=== PATIENT | female | born 1975 | race Caucasian/White ===

== ENCOUNTER → 2017-09-22 | Outpatient (CLI) | payer BC | END | disposition home or self-care (01) | LOC: LAB.O 08:25 | PROVIDERS: ATTEND General Practice | DX: I10 Essential (primary) hypertension (principal) ==

== ENCOUNTER → 2017-09-30 | Outpatient (CLI) | payer BC ==
--- NOTE | 2017-10-04 10:43 | MAM ---
EXAM DESCRIPTION: 3D Screening BILATERAL : Digital Mammography. CLINICAL HISTORY: 41 years Female SCREENING . No complaints. Remote family history of breast cancer. Postmenopausal. No HRT. Bilateral breast augmentation. COMPARISON: Baseline study at this facility.. No prior reports available. TECHNIQUE: Bilateral CC and MLO projection full-field images, with Marsha Implant Displacement 3-D tomosynthesis digital mammographic technique. Also bilateral synthesized CC/ MLO full-field images. Also with Marsha Implant Displacement, CAD not utilized. Bilateral 2-D digital full-field images, MLO and CC projections, non-displaced, with CAD. FINDINGS: The breast parenchymal density pattern is: Heterogeneously dense breast tissue, which may obscure small masses. No skin thickening or nipple retraction small region of focal asymmetry lateral to the right nipple (1000 clock position) best seen on the implant displacement views. Bilateral axillary lymph nodes. Bilateral subglandular saline implants. Capsules appear intact where seen. No focal, stellate mass or density, focal asymmetry , and no suspicious microcalcifications left breast. IMPRESSION: BI-RADS CATEGORY: 0 - INCOMPLETE- Need additional imaging evaluation. FOLLOW-UP: Recall for additional imaging: Bilateral 3-D tomosynthesis full field LM images. Targeted right breast ultrasound of the region of interest.. Written communication concerning the IMPRESSION and Follow-up, will be mailed to the patient and referring health care provider. Electronically signed by: Trung Denton MD 10/04/2017 10:42 AM CDT
== END ==
LOC: MAMMO 15:00
PROVIDERS: ATTEND General Practice
DX: Z12.31 Encounter for screening mammogram for malignant neoplasm of breast (principal)

== ENCOUNTER → 2017-10-20 | Outpatient (CLI) | payer BC ==
--- NOTE | 2017-10-21 14:22 | US ---
EXAM DESCRIPTION: Breast,Bilateral: Ultrasound CLINICAL HISTORY: 41 yearsFemaleABN MAMMO. Focal asymmetry in the retroareolar breasts. Patient has bilateral saline breast implants. COMPARISON: Digital diagnostic 3-D tomosynthesis with Marsha views and bilateral 2-D mammography on this visit. Bilateral 3-D tomosynthesis screening on 09/30/2017. TECHNIQUE: Transcutaneous scanning of the bilateral retroareolar breast utilizing two-dimensional and Doppler modes. Scanning performed by the cordwood cutter and Dr. Denton. FINDINGS: Scanning of the bilateral breasts in the upper outer quadrant abutting the nipples. Predominantly fibroglandular tissues with minimal fat. No distinct mass or cyst. No large calcifications or parenchymal edema. No overlying skin abnormalities. Normal Doppler vascularity. IMPRESSION: 1. Bi-Rads Category 2: Benign. 2. Please refer to Bilateral 3-D tomosynthesis and 2-D digital mammography and report on this visit. The FINDINGS and the FOLLOW-UP plan were reviewed in person with the patient after the examination. Written communication explaining the IMPRESSION and FOLLOW-UP will be mailed to the patient and referring care provider. Electronically signed by: Trung Denton MD 10/21/2017 2:20 PM CDT
--- NOTE | 2017-10-21 14:23 | MAM ---
EXAM DESCRIPTION: 3D Diagnostic, Bilateral: Digital Mammography CLINICAL HISTORY: 41 yearsFemaleABNORMAL MAMMO history sheet. COMPARISON: prior. No prior reports available. Reports from prior examinations also reviewed. Report from prior examination also reviewed. TECHNIQUE: Bilateral LM projection full-field images, with Marsha implant displacement, 3-D tomosynthesis digital mammographic technique. Also bilateral synthesized, Marsha technique, LM full-field images. Bilateral full-field 2-D LM images. CAD utilized for 2-D images. FINDINGS: The breast parenchymal density pattern is: Heterogeneously dense breast tissue, which may obscure small masses. No skin thickening or nipple retraction no definite masses. Question of a retroareolar focal asymmetry at 300 clock position of the left breast. Also possible focal asymmetry at 900 clock position of the retroareolar right breast. Retroglandular saline implants. Implant capsules appear intact where seen. No focal, stellate mass or density, , and no suspicious microcalcifications bilaterally. ULTRASOUND: Scanning of the bilateral breasts in the upper outer quadrant abutting the nipples. Predominantly fibroglandular tissues with minimal fat. No distinct mass or cyst. No large calcifications or parenchymal edema. No overlying skin abnormalities. Normal Doppler vascularity. IMPRESSION: BI-RADS CATEGORY: 2 - BENIGN FINDINGS. FOLLOW UP: Return to routine digital bilateral screening, one year interval from September 2017. The FINDINGS and the FOLLOW-UP plan were reviewed in person with the patient after the examination. Written communication explaining the IMPRESSION and FOLLOW-UP will be mailed to the patient and referring care provider. According to the [employer], yearly mammograms are recommended starting at age 40 and continuing as long as a woman is in good health. Any breast change noted on a breast self-exam should be reported promptly to the patient's healthcare provider. Breast MRI is recommended for women with an approximately 20-25% or greater lifetime risk of breast cancer, including women with a strong family history of breast or ovarian cancer and women who have been treated for Hodgkin's disease. A negative mammographic report should not delay tissue diagnosis in patients with significant clinical history or physical findings. Extremely dense breast tissue limits the sensitivity of digital mammography. Electronically signed by: Trung Denton MD 10/21/2017 2:21 PM CDT
== END ==
LOC: MAMMO 10:17
PROVIDERS: ATTEND General Practice
DX: R92.8 Other abnormal and inconclusive findings on diagnostic imaging of breast (principal)
CPT/HCPCS: 76641; 77066; G0279

== ENCOUNTER → 2019-03-08 | Outpatient (CLI) | payer BC | LOC: LAB.O 10:05 | PROVIDERS: ATTEND General Practice | DX: Z00.00 Encounter for general adult medical examination without abnormal findings (principal) ==

== ENCOUNTER → 2020-05-20 | Outpatient (CLI) | payer BC | LOC: YCFC.O 10:35 | PROVIDERS: ATTEND Nurse Practitioner Family | DX: Z20.828 Contact with and (suspected) exposure to other viral communicable diseases (principal) ==